=== PATIENT | male | born 2000 | race Two or more races ===

== ENCOUNTER 2024-06-16 12:22 | Emergency (ER) | payer OTHER ==
[~2024-06-16] VITALS: Ht 177.8 cm; Wt 98.9 kg
[2024-06-16] MEDS ORDERED: METOCLOPRAMIDE HCL 10 MG/2 ML VIAL ONE (14:28)
[2024-06-16] MEDS ORDERED: diphenhydrAMINE HCL 50 MG/ML VIAL ONE (14:28)
[2024-06-16] MEDS ORDERED: ACETAMINOPHEN 325 MG TABLET ONE (14:29)
[2024-06-16] MEDS: ACETAMINOPHEN 325 MG TABLET PO ONE (14:30)
[2024-06-16] MEDS: METOCLOPRAMIDE HCL 10 MG/2 ML VIAL IV ONE (14:32)
[2024-06-16] MEDS: diphenhydrAMINE HCL 50 MG/ML VIAL IV ONE (14:34)
[2024-06-16] MEDS: IV NS 0.9% 1,000 ML BAG IV ONE (14:35)
[2024-06-16 14:52] LABS: BASOPHILS % (AUTO) 0.5 % (0.0-2.0); EOSINOPHILS % (AUTO) 0.1 % (0.0-6.0); HEMATOCRIT 48 % (39-51); HEMOGLOBIN 16.1 g/dL (13.5-17.5); LYMPHOCYTES % (AUTO) 11.7 % (20.0-44.0); MEAN CORPUSCULAR HEMOGLOBIN 29 PG (26.0-33.0); MEAN CORPUSCULAR HGB CONC 34 g/dl (31.0-36.0); MEAN CORPUSCULAR VOLUME 85 fL (80-96); MONOCYTES # (AUTO) 0.5 K/uL (0.1-1.30); MONOCYTES % (AUTO) 5.2 % (2.0-12.0); NEUTROPHILS # (AUTO) 7.3 K/uL (1.8-8.9); NEUTROPHILS % (AUTO) 82.5 % (43.0-81.0); PLATELET COUNT (AUTO) 533 K/uL (150-450); RED BLOOD CELL COUNT(AUTO) 5.59 MIL/uL (4.5-6.0); RED CELL DISTRIBUTION WIDTH 13.8 % (11.5-15.0); WHITE BLOOD COUNT (AUTO) 8.9 K/uL (4.3-11.0)
[2024-06-16 15:07] LABS: POTASSIUM 4.5 mmol/L (3.5-5.1)
[2024-06-16 15:17] LABS: ALBUMIN 4.3 g/dL (3.4-5.0); BILIRUBIN,DIRECT 0.1 mg/dL (0.0-0.2); BILIRUBIN,TOTAL 0.6 mg/dL (0.2-1.0); TOTAL PROTEIN, SERUM 9.7 g/dL (6.4-8.2)
[2024-06-16 19:33] VITALS: BP 132/90; TEMP 98.6; O2SAT 98
== END 2024-06-16 19:30 | disposition home or self-care (01) ==
LOC: ER 12:26
DX: R51.9 Headache, unspecified (principal)
CPT/HCPCS: 99285; 96374; 70450; 96361; 96375; 85025; 80048; 80076; 36415; J1200; J2765; J7030; A4223